=== PATIENT | female | born 1975 | race African-American/Black ===

== ENCOUNTER 2025-01-10 16:30 | Emergency (ER) | payer BC, OTHER, SELFPAY ==
[2025-01-10 16:36] VITALS: BP 142/96
[2025-01-10 16:57] LABS: Hematocrit 36.8 % (37.0-47.0); Hemoglobin 11.9 g/dL (12.0-16.0); Mean Corp Hgb Conc. 32.3 g/dL (33.0-37.0); Mean Corpuscular Volume 86.0 fL (81.0-99.0); Nucleated Red Blood Cells % 0 %; Platelet Count 323 10^3/uL (130-400); Red Cell Dist. Width 14.0 % (11.5-14.5)
[2025-01-10 17:17] LABS: ALT (SGPT) 21 U/L (0-35); AST (SGOT) 17 U/L (14-36); Albumin 4.1 g/dl (3.5-5.0); Alkaline Phosphatase 67 U/L (38-126); Blood Urea Nitrogen 23 mg/dl (7-17); Calcium 9.8 mg/dl (8.4-10.2); Carbon Dioxide 20 mmol/L (22-30); Chloride 113 mmol/L (98-107); Glucose 130 mg/dl (70-99); Potassium 4.3 mmol/L (3.5-5.1); Sodium 142 mmol/L (135-145); Total Protein 7.1 g/dl (6.3-8.2); eGFR > 60.00
[2025-01-10 17:21] LABS: Troponin I < 0.012 ng/ml
--- NOTE | 2025-01-10 17:26 | ED.GENMED ---
History of Present Illness
General
Chief Complaint: Chest Pain
Source: patient
Exam Limitations: none
Time Seen by Provider: 01/10/25 17:26
History of Present Illness
History of Present Illness:
49-year-old female presents with onset of feeling lightheaded slightly off in [employer]. She used her medical marijuana about an hour before it is normally not had this reaction. Then while driving at 230 she had tingling in her arms along with some
chest tightness. This has been ongoing since then slightly less but intermittent in nature. No pleuritic pain. Some shortness of breath with this. No abdominal pain fever chills or cough. No hemoptysis. No history of similar episodes.
Past History
Past History
ED Past Medical History: HTN, Hypercholesterolemia and NIDDM
Social History
Tobacco: Smoker
Personal:
Living: with family
Family History
Family History: CAD
Phy Exam
Physical Exam
Physical Exam:
GENERAL: Alert and oriented in no apparent distress
EYE: Orbits normal.
NECK: Supple, no thyroid palpable
CARDIAC: Regular rate and rhythm without any obvious murmurs.
LUNGS: Clear breath sounds,normal
ABDOMEN: Soft, without focal tenderness or distention
NEUROLOGICAL: Alert and oriented , grossly non-focal
SKIN: Warm and dry, no rash or lesion, no discoloration, skin intact.
MUSCULOSKELETAL: No edema,no deformity.Good color
PSYCH: Normal and appropriate interaction.
Scores
Heart Score for Chest Pain Patients
STEMI patient?: No
History: Slightly or Non-Suspicious
ECG: Normal
Age: >45 - <65 years
Risk Factors: >/= 3 Risk Factors or History of CAD
Troponin: </= Normal Limit
Heart Score for Chest Pain Patients: 3
Heart Score Risk: 2.5% MACE over next 6 weeks
Course
Orders/Labs/Results
Orders:
Orders
01/10/25 16:32
EKG [Electrocardiogram (*1)] Urgent
Reason for Study: Shortness of Breath
EKG- Treatment ONCE
01/10/25 16:47
CBC/With Diff [Complete Blood Count/With Diff] Urgent
CMP [Comprehensive Metabolic Panel] Urgent
TSH Reflex To Free T4 Urgent
Comment: ADD ON
Troponin I Urgent
01/10/25 17:36
EKG- Treatment ONCE
IV Insert/Care/Rem.- Treatment PRN
0.9% Sodium Chloride 500 ml [Nss] 500 ml IV BOLUS
01/10/25 17:37
CT Chest PE Study Urgent
Comment:
Reason For Exam: Chest tightness short of breath
01/10/25 18:44
Troponin I Urgent
01/10/25 19:45
Electrocardiogram (*1) Stat
Reason for Study: Other
Other Reason for Exam: chest pain
01/10/25 21:02
Add On- LAB Urgent
Tests Added?: tsh reflex t4
Abnormal Lab Results
01/10/25
16:47
Hgb 11.9 L g/dL
(12.0-16.0)
Hct 36.8 L %
(37.0-47.0)
MCHC 32.3 L g/dL
(33.0-37.0)
Absolute Monos (auto) 0.7 H 10^3/uL
(0.1-0.6)
Chloride 113 H mmol/L
(98-107)
Carbon Dioxide 20 L mmol/L
(22-30)
BUN 23 H mg/dl
(7-17)
Creatinine 1.1 H mg/dL
(0.6-1.0)
Glucose 130 H mg/dl
(70-99)
01/10/25 16:47
01/10/25 16:47
Vital Signs
Initial and Last Documented VS:
Initial Vital Signs
Temp Pulse Resp BP Pulse Ox
98.7 F 102 15 142/96 97
01/10/25 16:36 01/10/25 16:36 01/10/25 16:36 01/10/25 16:36 01/10/25 16:36
Last Documented Vital Signs
Temp Pulse Resp BP Pulse Ox
98.2 F 80 22 136/82 95
01/10/25 21:19 01/10/25 21:19 01/10/25 21:19 01/10/25 21:19 01/10/25 21:19
MDM/Problems Addressed
Differential Diagnosis Includes:
Patient appears in no distress. He is nontoxic. Some tingling in both hands with some and mild chest tightness and shortness of breath. Significant cardiac risk factors. Somewhat of atypical nonexertional history however. Initial cardiac
testing within normal limits. Will repeat in 3 hours. Also did consider pulmonary emboli with borderline tachycardia history of superficial thrombophlebitis in the right leg and shortness of breath. Will await the CAT scan for these risk factors.
*Pulse Oximetry
SaO2: 97
Oxygen Mode of Delivery: Room air
Patient hypoxic: no
*EKG
Interpreted by ED Provider?: Yes
Interpretation: normal
Comparison EKG: no comparison EKG present
Heart Rate: 97
Rate: normal
Rhythm: sinus
[place]: normal axis
Interval: normal interval
QRS Pattern: normal QRS
Ischemia: no ischemia
*Critical Care Note
Total Time (30-74mins, 75-104mins- exclusive of procedures): Not Applicable
Update Note
Update Note:
Repeat EKG normal sinus rhythm no acute changes. Clinically relatively low suspicion for cardiac however significant risk factors. Stable. No chest pain or shortness of breath now. CT scan reviewed with patient. Clinically this is not heart
failure. Reviewed the nodules in her lung along with a nonspecific inflammatory changes in her lung. Also reviewed her thyroid nodule that needs follow-up. Patient complains of some tingling around her face diffusely and tingling of the left
first toe. She was complaining of the toe tingling earlier. She has no other neurologic symptoms and symptoms are not consistent with an acute neurologic issue. No obvious explanation for her symptom complex today however I cannot find a serious
etiology and I feel she is medically stable for discharge to follow-up closely both with cardiology for the chest pain and shortness of breath and with pulmonary for the nodules along with an outpatient ultrasound and correlation with her mammogram.
Copy of report was given to patient and
ED Attending Note
-
Portions of this chart may have been created with voice recognition software.� Occasional wrong word or��sound alike� substitutions may have occurred due to the inherent limitations of voice recognition software.
Discharge Plan
Departure
Patient Disposition: Home (Routine Discharge)
Date of Disposition: 01/10/25
Time of Disposition: 21:06
Patient with high blood pressure during this ER visit?: Yes
Discharge Problem:
Chest pain/shortness of breath/resolved, Paresthesias, Pulmonary nodules, Mosaic pulmonary pattern by CT, Thyroid nodules, Nodular calcification left breast
Instructions: Chest Pain DCA Follow Up, BLOOD PRESSURE
Referrals:
Glen Guy MD [Family Provider, General]
Krzysztof Mills MD [Active, Pulmonary Medicine] - Follow up in 5-7 days
Activity Restrictions/Additional Instructions:
The cardiology group should call you tomorrow for close follow-up
I listed a senior technical architect in call for follow-up of the nodules in the inflammatory changes in your lung
Your primary care can follow-up for the thyroid ultrasound
Reviewed your mammogram with your CT finding with your primary physician or [facility] physician
Return sooner with worsening paresthesias unusual headache weakness speech issues or any other concerning symptoms
Interventions
Interventions:
*Risk Screen - Suicide Last Done: 01/10/25 16:36
*General Assessment Last Done: 01/10/25 16:36
*Neglect/Abuse Screening Last Done: 01/10/25 16:36
*ED COVID-19 Vaccine History Last Done: 01/10/25 16:36
*Nursing Disposition Last Done: 01/10/25 21:20
ED- Cardiac Assessment Last Done: 01/10/25 18:50
Discharge Date and Time
Discharge Date/Time: 01/10/25 21:20
Print Language: BELARUSIAN
[2025-01-10] MEDS: NSS 500 IV (18:48)
[2025-01-10 19:16] LABS: Troponin I < 0.012 ng/ml
[2025-01-10 21:19] VITALS: BP 136/82
== END 2025-01-10 21:20 | disposition home or self-care (01) ==
LOC: EMR 16:30
PROVIDERS: Emergency Medicine; EMERGENCY PHYSICIAN Emergency Medicine; FAMILY PHYSICIAN Family Medicine
DX: R20.2 Paresthesia of skin (principal); R91.1 Solitary pulmonary nodule; E04.2 Nontoxic multinodular goiter; N63.0 Unspecified lump in unspecified breast; E11.9 Type 2 diabetes mellitus without complications; I10 Essential (primary) hypertension; E78.00 Pure hypercholesterolemia, unspecified; F17.200 Nicotine dependence, unspecified, uncomplicated; Z86.72 Personal history of thrombophlebitis; Z82.49 Family history of ischemic heart disease and other diseases of the circulatory system
CPT/HCPCS: 99284; 71275; 80053; 84439; 84443; 84484; 85025; 93005; Q9967